=== PATIENT | male | born 2000 | race Caucasian/White ===

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

== ENCOUNTER 2020-02-19 16:55 | Emergency (ER) | payer OTHER ==
[2020-02-19 17:14] VITALS: BP 131/86; PULSE 83; TEMP 97.7; BMI 31.6
[2020-02-19 18:32] LABS: THROAT:GRP A STREP Negative (Negative)
== END 2020-02-19 18:51 | disposition home or self-care (01) ==
LOC: JER 16:55
DX: J02.9 Acute pharyngitis, unspecified (principal)
CPT/HCPCS: 87070; 87077; 87880; 99284-25; C9803; U0003